=== PATIENT | male | born 1985 | race Caucasian/White ===

== ENCOUNTER 2020-06-05 21:56 | Emergency (ER) | payer SELFPAY ==
[~2020-06-05] VITALS: Ht 180.3 cm; Wt 80.7 kg
[2020-06-05 22:07] VITALS: Ht 180.3 cm; Wt 80.7 kg
[2020-06-05 22:58] LABS: BASOPHIL % 0.4 % (0.2-1.5); PLATELET COUNT 275 x10^3mcL (152-348); RED CELL DISTRIBUTION WIDTH 12.9 % (12.1-16.2)
[2020-06-05 23:09] LABS: CALCIUM 8.5 mg/dL (8.5-10.1); CARBON DIOXIDE 24.1 mmol/L (21-32); CHLORIDE SERUM 100 mmol/L (98-107); CREATININE SERUM 1.1 mg/dL (0.7-1.3); GFR1 > 60 mL/min; GLUCOSE SERUM 161 mg/dL (74-106); POTASSIUM SERUM 3.2 mmol/L (3.5-5.1); SODIUM SERUM 134 mmol/L (136-145)
[2020-06-05 23:14] LABS: ALBUMIN 4.1 g/dL (3.4-5.0); ALKALINE PHOSPHATASE 57 U/L (46-116); ALT/SGPT 45 U/L (16-63); AST/SGOT 10 U/L (15-37); BILIRUBIN TOTAL 0.57 mg/dL (0.20-1.00)
[2020-06-05 23:16] LABS: TOTAL PROTEIN, SERUM 8.3 g/dL (6.4-8.2)
[2020-06-06 00:29] LABS: AMPHETAMINE QUAL UR NONE DETECTED (See below)
[2020-06-06 01:06] VITALS: BP 107/69
== END 2020-06-06 01:06 | disposition home or self-care (01) ==
LOC: ED 21:56
PROVIDERS: Emergency Medicine
DX: F41.9 Anxiety disorder, unspecified (principal); R07.89 Other chest pain
CPT/HCPCS: J7030